=== PATIENT | male | born 1975 | race American Indian/Alaskan Native ===

== ENCOUNTER 2020-04-08 17:46 | Emergency (ER) | payer SELFPAY ==
[2020-04-08] MEDS ORDERED: ZIPRASIDONE MESYLATE 20 MG VIAL IM ONE ×2 (18:37→18:40)
--- NOTE | 2020-04-08 18:45 | Emergency Department Report ---
<SHRAVAN PATTERSON - Last Filed: 04/08/20 18:42> ED Psych HPI - General Chief Complaint: Psych Stated Complaint: PSYCH/METH Time Seen by Provider: 04/08/20 18:40 Source: patient Mode of arrival: Ambulatory - History of Present Illness Initial Comments: Patient is 44 years old male with no significant past medical history. Patient brought to the emergency room via EMS after patient found to be agitated with significant delusion and paranoia. Patient admitted that he was using methamphetamine yesterday. Patient is very agitated and required chemical restraint with Geodon 20 mg IM. MD Complaint: altered mental status -: Sudden Associated Psychiatric Symptoms: racing thoughts Context: recent drug abuse - Related Data Previous Rx's Medication Instructions Recorded Last Taken Type HYDROcodone/APAP 5-325 [[place] 1 - 2 each PO Q6HR PRN #20 tablet 03/01/19 Unknown Rx 5/325] Ibuprofen [Motrin 800 MG tab] 800 mg PO Q8HR PRN #20 tablet 03/01/19 Unknown Rx Allergies Allergy/AdvReac Type Severity Reaction Status Date / Time No Known Allergies Allergy Unverified 03/01/19 11:56 ED Review of Systems Comment: Unobtainable due to pts medical conditions ED Past Medical Hx - Past Medical History Previous Medical History?: Yes - Surgical History Past Surgical History?: No - Social History Smoking Status: Current Every Day Smoker - Medications Home Medications: Home Medications Medication Instructions Recorded Confirmed Last Taken Type HYDROcodone/APAP 5-325 [[place] 1 - 2 each PO Q6HR PRN #20 tablet 03/01/19 Unknown Rx 5/325] Ibuprofen [Motrin 800 MG tab] 800 mg PO Q8HR PRN #20 tablet 03/01/19 Unknown Rx ED Physical Exam - General Limitations: No Limitations General appearance: alert, anxious, other (Agitated) - Head Head exam: Present: atraumatic, normocephalic, normal inspection - Eye Eye exam: Present: normal appearance - ENT ENT exam: Present: normal exam, normal orophraynx, mucous membranes moist - Neck Neck exam: Present: normal inspection. Absent: tenderness, meningismus - Respiratory Respiratory exam: Present: normal lung sounds bilaterally - Cardiovascular Cardiovascular Exam: Present: regular rate, normal rhythm, normal heart sounds - GI/Abdominal GI/Abdominal exam: Present: soft, normal bowel sounds. Absent: distended, tenderness, guarding, rebound, rigid, organomegaly, mass, bruit, pulsatile mass, hernia - Extremities Exam Extremities exam: Present: normal inspection, full ROM, normal capillary refill. Absent: pedal edema, calf tenderness - Neurological Exam Neurological exam: Present: alert, altered, CN II-XII intact, reflexes normal. Absent: motor sensory deficit - Psychiatric Psychiatric exam: Present: agitated, anxious, manic. Absent: homicidal ideation, suicidal ideation - Skin Skin exam: Present: warm, intact, normal color ED Disposition Clinical Impression: Psychoactive substance-induced mood disorder, Pyuria Disposition: DC-01 TO HOME OR SELFCARE Condition: Stable Additional Instructions: Recommend that patient avoid consumption of recreational drugs. Cultures were sent today, and results will be available in the next 3 to 5 days. Follow-up with a primary care doctor within the next week, and have a primary care doctor contact the medical records department to obtain culture results. Please return to the emergency room right away with new pain, worsening pain, migration of pain, projectile vomiting, change in mental status, confusion, inability to tolerate liquid feeds, homicidality, suicidality, new, worsened or different symptoms not present on the initial emergency room evaluation. Referrals: KARI ESCAMILLA MD [Primary Care Provider] [facility] Days <DHARMESH MOREL - Last Filed: 04/09/20 12:07> ED Review of Systems ROS: Stated complaint: PSYCH/METH Other details as noted in HPI ED Course Vital Signs 04/08/20 04/08/20 04/08/20 18:16 18:27 19:17 Temperature 98.2 F 98.0 F Pulse Rate 102 H 131 H Respiratory 18 18 18 Rate Blood Pressure 146/92 120/88 Blood Pressure 146/92 [Right] O2 Sat by Pulse 100 100 97 Oximetry 04/09/20 04/09/20 04:35 08:00 Temperature 97.6 F 98.3 F Pulse Rate 82 95 H Respiratory 18 20 Rate Blood Pressure 111/64 Blood Pressure 113/66 [Right] O2 Sat by Pulse 97 96 Oximetry - Reevaluation(s) Reevaluation #1: 04/09/20 12:05 Patient cleared by psychiatry. They indicate he does not require 1013 status. I have gone back to reevaluate the patient. He complains of chronic paralumbar nontraumatic nonradiating back pain, but otherwise denies homicidality, suicidality, and intentional overdose. He reports readiness for discharge. He states he can go home with family. He further endorses no urinary symptoms. Patient does not appear to have an emergent medical condition at this time. Urinalysis is reviewed and appreciated, and asymptomatic at this time. ED Medical Decision Making - Lab Data Result diagrams: 04/08/20 19:18 04/08/20 19:18 Critical care attestation.: If time is entered above; I have spent that time in minutes in the direct care of this critically ill patient, excluding procedure time. ED Disposition Is pt being admited?: No Does the pt Need Aspirin: No
[2020-04-08 19:36] LABS: Basophils # (Auto) 0.1 K/mm3 (0.0-0.1); Basophils % (Auto) 1.2 % (0.0-1.8); Eosinophils # (Auto) 0.1 K/mm3 (0.0-0.4); Hematocrit 50.9 % (35.5-45.6); Hemoglobin 17.1 gm/dl (11.8-15.2); Lymphocytes # (Auto) 1.5 K/mm3 (1.2-5.4); Mean Corpuscular HGB Conc 34 % (32-34); Mean Corpuscular Volume 96 fl (84-94); Monocytes # (Auto) 0.6 K/mm3 (0.0-0.8); Monocytes % (Auto) 10.8 % (0.0-7.3); Platelet Count 241 K/mm3 (140-440); Red Blood Count 5.28 M/mm3 (3.65-5.03); Red Cell Distribution Width 13.9 % (13.2-15.2)
[2020-04-08 19:56] LABS: BUN/Creatinine Ratio 12; Blood Urea Nitrogen 11 mg/dL (9-20); Calcium 9.7 mg/dL (8.4-10.2); Hemolysis Index 50
[2020-04-08 19:59] LABS: Alanine Aminotransferase 22 units/L (7-56)
[2020-04-08 20:04] LABS: Bilirubin,Direct < 0.2 mg/dL (0-0.2)
[2020-04-09 08:01] VITALS: BP 113/66
[2020-04-09 08:21] LABS: Benzodiazepines Screen,Urine Negative; Cannabinoid Screen,Urine Negative; Cocaine Screen,Urine Negative; Methadone Screen,Urine Negative; Opiate Screen,Urine Negative
[2020-04-09 08:28] LABS: Bilirubin,Urine NEG (Negative); Blood,Urine NEG (Negative); Color,Urine Amber (Yellow); Mucus,Urine 3+ /HPF
[2020-04-09 09:07] LABS: Amphetamine Screen,Urine Positive
[2020-04-09] MEDS ORDERED: LORazepam 2 MG/ML VIAL IM PRN (09:09)
[2020-04-09] MEDS ORDERED: HALOPERIDOL LACTATE 5 MG/1 ML INJ IM PRN (09:09)
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
== END 2020-04-09 12:24 | disposition home or self-care (01) ==
LOC: ED 17:46
DX: F24 Shared psychotic disorder (principal); R82.81 Pyuria; F17.200 Nicotine dependence, unspecified, uncomplicated; Z79.1 Long term (current) use of non-steroidal anti-inflammatories (NSAID); Z79.899 Other long term (current) drug therapy
CPT/HCPCS: 36415; 80048; 80076; 80307; 81001; 85025; 87086; 96372; 99284; J3486; 80320; G0480; J1630; J2060